=== PATIENT | female | born 1970 | race Caucasian/White ===

== ENCOUNTER → 2017-01-12 | Outpatient (CLI) | payer BC ==
[~2017-01-12] MED LIST: NAPR500T8 PO; SUMA100T4 PO
== END | disposition home or self-care (01) ==
LOC: STAR 15:13
PROVIDERS: ATTEND Obstetrics & Gynecology Female Pelvic Medicine and Reconstructive Surgery
DX: Z01.818 Encounter for other preprocedural examination (principal); N85.2 Hypertrophy of uterus; D25.9 Leiomyoma of uterus, unspecified
CPT/HCPCS: 36415; 84703; 85025

== ENCOUNTER 2017-01-23 07:43 | Day surgery (SDC) | payer BC ==
[~2017-01-23] VITALS: Ht 167.6 cm; Wt 79.0 kg
[2017-01-23 09:01] LABS: HCG UR OBC PASS
[2017-01-23] MEDS ORDERED: DEXAMETHASONE 4 MG/ML, 5ML ONE (09:30)
[2017-01-23] MEDS ORDERED: PROPOFOL 10 MG/ML, 50ML ONE (09:30)
[2017-01-23] MEDS ORDERED: METOCLOPRAMIDE 5 MG/ML, 2ML ONE (09:30)
[2017-01-23] MEDS ORDERED: NEOSTIGMINE 1 MG/ML, 10ML ONE (09:30)
[2017-01-23] MEDS ORDERED: KETAMINE 10 MG/ML, 20ML ONE (09:30)
[2017-01-23] MEDS ORDERED: CEFAZOLIN 1,000 MG ONE (09:30)
[2017-01-23] MEDS ORDERED: KETOROLAC 30 MG/1 ML ONE (09:30)
[2017-01-23] MEDS ORDERED: FLUORESCEIN SODIUM 500 MG/5 ML ONE (09:30)
[2017-01-23] MEDS ORDERED: PROPOFOL 10 MG/ML, 20ML ONE (09:30)
[2017-01-23] MEDS ORDERED: ONDANSETRON 2MG/ML, 2ML ONE (09:30)
[2017-01-23] MEDS ORDERED: GLYCOPYRROLATE 0.2MG/1ML ONE (09:30)
[2017-01-23] MEDS ORDERED: ROCURONIUM 10 MG/ML ONE (09:30)
[2017-01-23] MEDS ORDERED: SCOPOLAMINE PATCH, 1.5MG PATCH.TD72 TD ONE (09:31)
[2017-01-23] MEDS ORDERED: BUPIVACAINE 0.25% INFIL ONE (10:17)
[2017-01-23] MEDS ORDERED: PROMETHAZINE 25 MG/ML, 1ML IV PRN (10:30)
[2017-01-23] MEDS ORDERED: ONDANSETRON 2MG/ML, 2ML IVPush PRN ×2 (10:30→11:30)
[2017-01-23] MEDS ORDERED: MIDAZOLAM 1 MG/ML, 2ML IV PRN (10:30)
[2017-01-23] MEDS ORDERED: ACETAMINOPHEN 325 MG TABLET PO PRN (10:30)
[2017-01-23] MEDS ORDERED: OXYcodone 5 MG/5 ML ORAL.SOL UDC PO PRN (10:30)
[2017-01-23] MEDS ORDERED: ALBUTEROL/IPRATROPIUM 2.5MG/0.5MG, 3 ML NPPB PRN (10:30)
[2017-01-23] MEDS ORDERED: MEPERIDINE/PF 25MG/0.5ML IVPush PRN (10:30)
[2017-01-23] MEDS ORDERED: LABETALOL 5MG/ML, 20ML IV PRN (10:30)
[2017-01-23] MEDS ORDERED: HYDROmorphone 1 MG/ML, 1ML IV PRN (10:30)
[2017-01-23] MEDS ORDERED: MEPERIDINE/PF 25MG/0.5ML ONE (11:23)
[2017-01-23] MEDS ORDERED: OXYcodone 5 MG/5 ML ORAL.SOL UDC ONE (11:24)
[2017-01-23] MEDS ORDERED: IBUPROFEN 600 MG TABLET PO PRN (11:30)
[2017-01-23] MEDS ORDERED: OXYcodone/APAP 5/325MG TABLET PO PRN (11:30)
[2017-01-23] MEDS ORDERED: PROMETHAZINE 25 MG SUPP PR ONE (11:30)
[2017-01-23] MEDS ORDERED: ACETAMINOPHEN 650 MG/20.3 ML UDC ONE (11:56)
[2017-01-23] MEDS ORDERED: FENTANYL PF 100 MCG/2ML ONE (11:56)
[2017-01-23] MEDS: FENTANYL PF 100 MCG/2ML IV PRN ×4 (11:59→12:26)
== END 2017-01-23 15:40 | disposition home or self-care (01) ==
LOC: OUT 07:43
PROVIDERS: ATTEND Obstetrics & Gynecology Female Pelvic Medicine and Reconstructive Surgery
DX: N92.0 Excessive and frequent menstruation with regular cycle (principal); D25.9 Leiomyoma of uterus, unspecified; R35.0 Frequency of micturition; D64.9 Anemia, unspecified; G43.909 Migraine, unspecified, not intractable, without status migrainosus; Z98.890 Other specified postprocedural states; Z88.6 Allergy status to analgesic agent
CPT/HCPCS: 52000; 58571; 81025; 88307; J0171; J0690; J1100; J1885; J2175; J2250; J2405; J2704; J2710; J2765; J3010; J3490